=== PATIENT | female | born 1980 | race Caucasian/White ===

== ENCOUNTER 2018-02-14 19:37 | Emergency (ER) | payer MEDICAID ==
[2018-02-14 20:19] VITALS: Ht 160 cm
[2018-02-14 23:51] VITALS: BP 121/79
== END 2018-02-14 23:51 | disposition home or self-care (01) ==
LOC: ED 19:37
DX: M25.532 Pain in left wrist (principal)

== ENCOUNTER 2019-08-27 18:09 | Emergency (ER) | payer MEDICAID, SELFPAY ==
[~2019-08-27] VITALS: Ht 154.9 cm; Wt 59.0 kg
[2019-08-27 18:26] VITALS: Ht 154.9 cm; Wt 59.0 kg
[2019-08-27 21:57] VITALS: BP 121/69
== END 2019-08-27 21:57 | disposition home or self-care (01) ==
LOC: ED 18:09
DX: Z03.818 Encounter for observation for suspected exposure to other biological agents ruled out (principal); M19.90 Unspecified osteoarthritis, unspecified site